=== PATIENT | male | born 1965 | race Caucasian/White ===

== ENCOUNTER 2020-04-30 12:32 | Emergency (ER) | payer BC | END 2020-04-30 13:41 | disposition home or self-care (01) | LOC: JVIRT 12:32 | DX: Z20.828 Contact with and (suspected) exposure to other viral communicable diseases (principal) | CPT/HCPCS: C9803; G2012-GT; Q3014-GT; U0003 ==

== ENCOUNTER 2020-05-05 12:56 | Emergency (ER) | payer BC | END 2020-05-05 14:55 | disposition home or self-care (01) | LOC: JVIRT 12:56 | DX: Z03.818 Encounter for observation for suspected exposure to other biological agents ruled out (principal) | CPT/HCPCS: C9803; Q3014-GT; U0003 ==